=== PATIENT | male | born 1990 | race Caucasian/White ===

== ENCOUNTER 2016-12-31 22:31 | Emergency (ER) | payer MEDICAID ==
[~2016-12-31] VITALS: Ht 170.2 cm; Wt 68.7 kg
[2016-12-31 22:34] VITALS: BP 139/90
== END 2016-12-31 23:26 | disposition home or self-care (01) ==
LOC: ED 23:03
DX: K02.9 Dental caries, unspecified (principal); K04.7 Periapical abscess without sinus
CPT/HCPCS: 41800